=== PATIENT | male | born 1980 | race African-American/Black ===

== ENCOUNTER 2022-01-13 03:40 | Emergency (ER) | payer SELFPAY ==
[~2022-01-13] VITALS: Ht 182.9 cm; Wt 109.0 kg
[2022-01-13 03:43] VITALS: BP 161/92
[2022-01-13] MEDS ORDERED: LORAZEPAM 0.5MG TABLET PO ONE (04:15)
[2022-01-13] MEDS ORDERED: LORA-249 MT (04:55)
== END 2022-01-13 05:23 | disposition home or self-care (01) ==
LOC: ER 03:40
DX: F41.8 Other specified anxiety disorders (principal); R94.31 Abnormal electrocardiogram [ECG] [EKG]; Z87.828 Personal history of other (healed) physical injury and trauma
CPT/HCPCS: 93005; 99283

== ENCOUNTER 2023-12-18 02:49 | Emergency (ER) | payer MEDICAID, OTHER ==
[~2023-12-18] VITALS: Ht 182.9 cm; Wt 127.0 kg
[~2023-12-18 02:49] MED LIST: LORA-249 MT
[2023-12-18 02:57] VITALS: BP 144/91; TEMP 98.3; O2SAT 98
[2023-12-18 02:58] VITALS: PULSE 100; RESP 16
[2023-12-18] MEDS ORDERED: IBUPROFEN 600MG TABLET PO ONE (03:30)
== END 2023-12-18 05:24 | disposition home or self-care (01) ==
LOC: ER 02:49
DX: M79.672 Pain in left foot (principal)
CPT/HCPCS: 73630; 99283